=== PATIENT | female | born 1950 | race Caucasian/White ===

== ENCOUNTER 2020-05-06 18:53 | Observation (INO) ==
[2020-05-06 19:20] LABS: Basophils % 0.7 % (0.0-0.8); Eosinophils # 0.1 10*3/uL (0.0-0.87); Eosinophils % 2.1 % (0.00-10.9); Hematocrit 42.7 VOL% (35.7-47.0); Immature Granulocytes % 0.2 %; Immature Granulocytes Absolute 0.01 #; Lymphocytes # 2.4 10*3/uL (1.4-4.0); Lymphocytes % 39.7 % (21.3-54.2); Mean Corpuscular HGB Conc 32.8 GM/DL (32-36); Mean Corpuscular Volume 88.4 FL (87-102); Mean Platelet Volume 10.8 FL (9.6-12.0); Neutrophils % 49.3 % (38.7-73.9); Platelet Count 270 T/CUMM (130-400); Red Blood Count 4.83 MC/CUMM (3.8-5.5); Red Cell Distribution Width 12.4 % (9.3-17.3); White Blood Count 6.1 T/CUMM (4-12)
[2020-05-06 19:26] LABS: Bacteria,Urine Occasional /HPF (Few); Bilirubin,Urine Negative (Negative); Blood, Urine Negative (Negative); Glucose,Urine (UA) Negative (Negative); Hyaline Casts,Urine 1 /LPF (0-3); Ketones,Urine Negative (Negative); Mucus,Urine Occasional /LPF (Occasional); Nitrite,Urine Negative (Negative); Protein,Urine Negative; RBC,Urine 2 /HPF (0-4); Squamous Epithelial Cell,Urine Occasional /HPF (0-10); Urine Appearance CLEAR (Clear); Urine Color Colorless (Yellow); Urine Specific Gravity 1.002 (1.001-1.035); Urine Urobilinogen < 2.0 EU/DL (0.2-1.0); WBC,Urine 9 /HPF (0-6)
[2020-05-06 19:51] LABS: Calcium 9.1 MG/DL (8.5-10.1); Osmolality,Calculated 278.4 MOS/KG (273-304); Potassium 4.1 MMOL/L (3.5-5.1); Total Protein 7.1 G/DL (6.4-8.3)
[2020-05-06] MEDS ORDERED: NITROGLYCERIN 2% OINT 1 INCH/GM PACK TOP STA (20:34)
[2020-05-06] MEDS ORDERED: FUROSEMIDE 40 MG/4 ML VIAL IV STA (20:44)
[2020-05-06] MEDS ORDERED: DEXTROSE 50% 25 GM/50 ML VIAL IV PRN (20:54)
[2020-05-06] MEDS ORDERED: GLUCAGON 1 MG VIAL IM PRN (20:54)
[2020-05-06] MEDS ORDERED: cefTRIAXone 1,000 MG in SODIUM CHLORIDE 0.9% 100 ML IV STA (21:03)
[2020-05-06] MEDS ORDERED: MORPHINE 4 MG/1 ML VIAL IV STA (21:58)
[2020-05-06] MEDS ORDERED: ONDANSETRON 4 MG/2 ML VIAL IV STA (21:58)
[2020-05-07 00:45] LABS: Risk Ratio 2.18; VLDL CHOLESTEROL 11.6 MG/DL
[2020-05-07] MEDS ORDERED: ALUM/MAG/SIMETH/LIDO VISC 1:1 30 ML BOTTLE PO ONE (05:56)
[2020-05-07] MEDS ORDERED: MORPHINE 4 MG/1 ML VIAL IV ONE (06:20)
[2020-05-07 07:16] LABS: Troponin I < 0.015 NG/ML (0.00-0.045)
[2020-05-07] MEDS: FAMOTIDINE 20 MG TABLET PO SCH ×2 (08:39→20:20)
[2020-05-07] MEDS ORDERED: PRIMIDONE 50 MG TABLET PO SCH ×2 (09:00→21:00)
[2020-05-07] MEDS ORDERED: LOSARTAN 50 MG TABLET PO SCH ×2 (14:00→21:00)
[2020-05-08 07:37] VITALS: BP 125/74
[2020-05-08] MEDS ORDERED: KETOROLAC 30 MG/1 ML VIAL IV ONE (08:40)
[2020-05-08] MEDS: FAMOTIDINE 20 MG TABLET PO SCH (09:31)
[2020-05-08] MEDS ORDERED: KETOROLAC 10 MG TABLET PO SCH (12:00)
[2020-05-08] MEDS ORDERED: ROSUVASTATIN 10 MG TABLET PO SCH (21:00)
== END 2020-05-08 14:15 | disposition home or self-care (01) ==
LOC: N.EDINP 18:53 → N.ED 18:53 → N.EDINP 22:35 → N.TELES 23:30
PROVIDERS: ADMIT Internal Medicine; ATTEND Internal Medicine

== ENCOUNTER 2020-05-28 17:23 | Observation (INO) ==
[2020-05-28 18:04] LABS: Basophils % 0.4 % (0.0-0.8); Eosinophils # 0.1 10*3/uL (0.0-0.87); Hematocrit 42.5 VOL% (35.7-47.0); Hemoglobin 13.6 GM/DL (12.0-16.0); Immature Granulocytes % 0.4 %; Immature Granulocytes Absolute 0.03 #; Lymphocytes # 1.7 10*3/uL (1.4-4.0); Lymphocytes % 25.7 % (21.3-54.2); Mean Platelet Volume 11.6 FL (9.6-12.0); Monocytes % 6.3 % (1.7-12.7); Neutrophils % 66.2 % (38.7-73.9); Platelet Count 255 T/CUMM (130-400); Red Blood Count 4.67 MC/CUMM (3.8-5.5); Red Cell Distribution Width 12.3 % (9.3-17.3); White Blood Count 6.7 T/CUMM (4-12)
[2020-05-28 18:14] LABS: Albumin 3.7 G/DL (3.4-5.0); Bilirubin,Total 0.9 MG/DL (0.2-1.0); Osmolality,Calculated 279.4 MOS/KG (273-304); Potassium 3.8 MMOL/L (3.5-5.1)
[2020-05-28] MEDS ORDERED: MORPHINE 4 MG/1 ML VIAL IV STA (18:14)
[2020-05-28] MEDS ORDERED: NITROGLYCERIN 2% OINT 1 INCH/GM PACK TOP STA (18:14)
[2020-05-28] MEDS ORDERED: ASPIRIN 325 MG TABLET PO STA (18:14)
[2020-05-28] MEDS ORDERED: ONDANSETRON 4 MG/2 ML VIAL IV STA (18:14)
[2020-05-28 18:20] LABS: PT Patient Result 10.7 SECS (9.8-11.9); Partial Thromboplastin Time 29.3 SECS (23.9-33.8)
[2020-05-28 18:32] LABS: PT Patient Result 10.6 SECS (9.8-11.9)
[2020-05-28] MEDS ORDERED: GLUCAGON 1 MG VIAL IM PRN (19:51)
[2020-05-28] MEDS ORDERED: DEXTROSE 50% 25 GM/50 ML VIAL IV PRN (19:51)
[2020-05-28] MEDS ORDERED: ONDANSETRON 4 MG/2 ML VIAL IV PRN (19:51)
[2020-05-28] MEDS: PRIMIDONE 50 MG TABLET PO SCH (23:19)
[2020-05-28] MEDS: ENOXAPARIN 80 MG/0.8 ML SYRINGE SUBCUT SCH (23:20)
[2020-05-28] MEDS: ROSUVASTATIN 10 MG TABLET PO SCH (23:21)
[2020-05-28] MEDS: carvediloL 6.25 MG TABLET PO SCH ×2 (23:21→23:33)
[2020-05-29 01:11] LABS: Calcium 9.2 MG/DL (8.5-10.1); Osmolality,Calculated 273.7 MOS/KG (273-304); Potassium 4.6 MMOL/L (3.5-5.1)
[2020-05-29 01:17] LABS: Basophils % 0.6 % (0.0-0.8); Eosinophils # 0.1 10*3/uL (0.0-0.87); Eosinophils % 1.3 % (0.00-10.9); Hematocrit 38.4 VOL% (35.7-47.0); Hemoglobin 12.7 GM/DL (12.0-16.0); Immature Granulocytes % 0.4 %; Immature Granulocytes Absolute 0.02 #; Lymphocytes # 2.2 10*3/uL (1.4-4.0); Lymphocytes % 40.4 % (21.3-54.2); Mean Corpuscular HGB Conc 33.1 GM/DL (32-36); Mean Corpuscular Volume 88.5 FL (87-102); Mean Platelet Volume 11.5 FL (9.6-12.0); Monocytes % 8.5 % (1.7-12.7); Neutrophils % 48.8 % (38.7-73.9); Platelet Count 221 T/CUMM (130-400); Red Blood Count 4.34 MC/CUMM (3.8-5.5); Red Cell Distribution Width 12.3 % (9.3-17.3); White Blood Count 5.4 T/CUMM (4-12)
[2020-05-29] MEDS ORDERED: MAGNESIUM SULF RIDER 2 GM in PREMIX 1 EACH IV PRN (07:22)
[2020-05-29] MEDS ORDERED: POTASSIUM CHLORIDE RIDER 10 MEQ in PREMIX 1 EACH IV PRN (07:22)
[2020-05-29] MEDS ORDERED: DIAZEPAM 5 MG TABLET PO ONE (07:22)
[2020-05-29] MEDS ORDERED: diphenhydrAMINE CAP 25 MG CAPSULE PO ONE (07:22)
[2020-05-29] MEDS ORDERED: SODIUM CHLORIDE 0.9% 1,000 ML IV SCH (08:00)
[2020-05-29] MEDS: PRIMIDONE 50 MG TABLET PO SCH ×2 (08:59→21:08)
[2020-05-29] MEDS: CALCIUM CARBONATE CHEW 500 MG TABLET PO SCH (08:59)
[2020-05-29] MEDS: carvediloL 6.25 MG TABLET PO SCH ×2 (09:00→18:04)
[2020-05-29] MEDS: PANTOPRAZOLE 40 MG TABLET PO SCH (09:00)
[2020-05-29] MEDS ORDERED: LOPERAMIDE 2 MG CAPSULE PO PRN (09:00)
[2020-05-29] MEDS: FUROSEMIDE 20 MG TABLET PO SCH (09:00)
[2020-05-29] MEDS ORDERED: MIDAZOLAM 2 MG/2 ML VIAL ONE (09:52)
[2020-05-29] MEDS ORDERED: LIDOCAINE 1% 20 ML VIAL ONE (09:52)
[2020-05-29] MEDS ORDERED: NITROGLYCERIN DRIP 50 MG/250 ML BOTTLE IV ONE (09:52)
[2020-05-29] MEDS ORDERED: fentaNYL 100 MCG/2 ML VIAL ONE (09:52)
[2020-05-29] MEDS ORDERED: VERAPAMIL 5 MG/2 ML VIAL ONE (09:52)
[2020-05-29] MEDS ORDERED: ENOXAPARIN 30 MG/0.3 ML SYRINGE ONE (10:11)
[2020-05-29 21:05] LABS: Troponin I 0.029 NG/ML (0.00-0.045)
[2020-05-29] MEDS: ROSUVASTATIN 10 MG TABLET PO SCH (21:08)
[2020-05-29] MEDS: ENOXAPARIN 80 MG/0.8 ML SYRINGE SUBCUT SCH (21:55)
[2020-05-30] MEDS ORDERED: CALCIUM CARBONATE CHEW 500 MG TABLET PO ONE (02:15)
[2020-05-30 05:56] LABS: Basophils % 0.5 % (0.0-0.8); Eosinophils # 0.1 10*3/uL (0.0-0.87); Eosinophils % 1.2 % (0.00-10.9); Hematocrit 39.5 VOL% (35.7-47.0); Hemoglobin 12.8 GM/DL (12.0-16.0); Immature Granulocytes % 0.5 %; Immature Granulocytes Absolute 0.03 #; Lymphocytes # 1.4 10*3/uL (1.4-4.0); Lymphocytes % 23.1 % (21.3-54.2); Mean Corpuscular HGB Conc 32.4 GM/DL (32-36); Mean Platelet Volume 12.4 FL (9.6-12.0); Monocytes % 6.8 % (1.7-12.7); Neutrophils % 67.9 % (38.7-73.9); Platelet Count 239 T/CUMM (130-400); Red Blood Count 4.44 MC/CUMM (3.8-5.5); Red Cell Distribution Width 12.2 % (9.3-17.3); White Blood Count 5.9 T/CUMM (4-12)
[2020-05-30 06:23] LABS: Calcium 9.2 MG/DL (8.5-10.1); Osmolality,Calculated 274.7 MOS/KG (273-304); Potassium 3.5 MMOL/L (3.5-5.1)
[2020-05-30] MEDS: CALCIUM CARBONATE CHEW 500 MG TABLET PO SCH (08:52)
[2020-05-30] MEDS: FUROSEMIDE 20 MG TABLET PO SCH (08:52)
[2020-05-30] MEDS: PANTOPRAZOLE 40 MG TABLET PO SCH (08:52)
[2020-05-30] MEDS: PRIMIDONE 50 MG TABLET PO SCH (08:52)
[2020-05-30] MEDS ORDERED: LOSARTAN 50 MG TABLET PO SCH (10:00)
[2020-05-30 11:42] VITALS: BP 168/89
[2020-05-30 13:10] LABS: Troponin I < 0.015 NG/ML (0.00-0.045)
[2020-06-04] MEDS ORDERED: CYANOCOBALAMIN 1000 MCG/1 ML VIAL IM SCH (09:00)
== END 2020-05-30 15:32 | disposition home health service (06) ==
LOC: N.ED 17:23 → N.EDINP 17:23 → SUATTDRO 19:51 → N.TELEN 21:59
PROVIDERS: ADMIT Internal Medicine; ATTEND Internal Medicine
PROC: CLCCHCL (ICD-10-PCS; 2020-05-29 10:45)